=== PATIENT | male | born 1970 | race Caucasian/White ===

== ENCOUNTER 2019-07-30 16:12 | Emergency (ER) | payer BC ==
[2019-07-30] MEDS ORDERED: Famotidine IV* 10 MG/ML 2 ML (20 mg) IV SLOW PU ONE (16:35)
[2019-07-30] MEDS ORDERED: NS 0.9% 1000 ML** 1,000 ML IV ONE (16:35)
--- NOTE | 2019-07-30 16:37 | ED ---
Allergic Reaction/Systemic - HPI Summary HPI Summary: This patient is a 49 year old M BIBA to ED vis EMS with a chief complaint of allergic reaction since 1529 today. Patient was stung by wasps and developed hives. He was doing yardwork and moved a log that had a yellow jackets nest underneath. Patient has a hx of reaction to bees and wasps. He usually has itchy throat and hives. Within 15 minutes of being stung, patient treated himself with Epi-Pen that in November and 50mg Benadryl before he had SOB. EMS gave 10mg of Decadron. The patient rates the pain 0/10 in severity. Symptoms aggravated by nothing. Symptoms alleviated by Epi-Pen, Benadryl, Decadron (by EMS). Patient reports hives. Patient denies SOB. - History of Current Complaint Chief Complaint: EDAllergicReaction Time Seen by Provider: 07/30/19 16:25 Hx Obtained From: Patient Onset/Duration: Sudden Onset, Started hours ago - At 1529 today Severity Initially: Mild Severity Currently: Mild Pain Intensity: 0 Pain Scale Used: 0-10 Numeric Character: Hives Aggravating Factor(s): Nothing Alleviating Factor(s): Other - Epi-Pen, Benadryl, Decadron (by EMS) Associated Signs And Symptoms: Positive: Negative - SOB, Rash - Hives - Allergies/Home Medications Allergies/Adverse Reactions: Allergies Allergy/AdvReac Type Severity Reaction Status Date / Time bee venom protein (honey bee) Allergy Anaphylatic Verified 07/30/19 16:22 Shock Home Medications: Home Medications Atorvastatin* [Lipitor*] 10 mg PO 2100 07/30/19 [History Confirmed 07/30/19] PMH/Surg Hx/FS Hx/Imm Hx Endocrine/Hematology History: Denies: Hx Diabetes Cardiovascular History: Denies: Hx Hypertension Sensory History: Denies: Hx Legally Blind, Hx Deafness Opthamlomology History: Denies: Hx Legally Blind EENT History: Denies: Hx Deafness - Surgical History Surgery Procedure, Year, and Place: Denies Infectious Disease History: No Infectious Disease History: Denies: Traveled Outside the [place] in Last 30 Days - Family History Known Family History: Positive: Non-Contributory - Social History Alcohol Use: None Hx Substance Use: No Substance Use Type: Reports: None Hx Tobacco Use: No Smoking Status (MU): Never Smoked Tobacco Review of Systems Negative: Shortness Of Breath Skin: Other - Hives All Other Systems Reviewed And Are Negative: Yes Physical Exam - Summary Physical Exam Summary: GENERAL: Patient is a well-developed and nourished M who is lying comfortable in the stretcher. Patient is not in any acute respiratory distress. HEAD AND FACE: Normocephalic EYES: PERRLA, EOMI x 2. EARS: Hearing grossly intact. MOUTH: Oropharynx within normal limits. Uvula is midline and unswollen NECK: Supple, trachea is midline, no adenopathy, no JVD, no carotid bruit. CHEST: Symmetric, no tenderness at palpation LUNGS: Clear to auscultation bilaterally. No wheezing or crackles. CVS: Regular rate and rhythm, S1 and S2 present, no murmurs or gallops appreciated. ABDOMEN: Soft, non-tender. Bowel sounds are normal. No abnormal abdominal pulsations. EXTREMITIES: Full ROM in all major joints, no edema, no cyanosis or clubbing. NEURO: Alert and oriented x 3. No acute neurological deficits. Speech is normal and follows commands. SKIN: Wasp stings on upper back, chest, lower abdomen, waist Triage Information Reviewed: Yes Vital Signs On Initial Exam: Initial Vitals Temp Pulse Resp BP Pulse Ox 99 F 101 20 124/76 93 07/30/19 16:15 07/30/19 16:15 07/30/19 16:15 07/30/19 16:15 07/30/19 16:15 Vital Signs Reviewed: Yes Diagnostics - Vital Signs Vital Signs Temp Pulse Resp BP Pulse Ox 07/30/19 16:15 99 F 101 20 124/76 93 - Laboratory Lab Statement: Any lab studies that have been ordered have been reviewed, and results considered in the medical decision making process. Re-Evaluation - Re-Evaluation First Eval Re-Evaluation Time: 18:24 Change: Improved Comment: Patient reports feeling better. Patient will be watched for another half hour and then discharged with dx of allergic reaction to wasp. Patient understands and agrees with this plan. Allergic Reaction Course/Dx - Course Course Of Treatment: This patient is a 49 year old M BIBA to ED vis EMS with a chief complaint of allergic reaction to wasp stings at 1530 today. In the ED course, patient received Famotidine and fluids. After treatment and watching in the ED, patient reports feeling better. Patient will be discharged home with dx of allergic reaction to wasp sting. Patient understands and agrees with this plan. - Diagnoses Provider Diagnoses: Allergic reaction Discharge ED - Sign-Out/Discharge Documenting (check all that apply): Patient Departure - Discharge Patient Received Moderate/Deep Sedation with Procedure: No - Discharge Plan Condition: Stable Disposition: HOME Prescriptions: diphenhydrAMINE HCl [Benadryl] 50 mg PO TID #30 capsule EPINEPHrine [Epipen 2-Gideon] 0.3 mg IM ONCE #1 inj Famotidine TAB* [Pepcid 20 MG TAB*] 40 mg PO DAILY #20 tab predniSONE [Prednisone 20 MG TAB] 20 mg PO DAILY #4 tablet Patient Education Materials: Insect Bite or Sting (ED), Anaphylaxis (ED), Allergies (ED) Referrals: Alvaro Marcus MD [Primary Care Provider] - 3 Days Additional Instructions: Follow up with your primary care physician in 1-3 days. RETURN TO THE EMERGENCY DEPARTMENT FOR CHANGING OR WORSENING SYMPTOMS. - Billing Disposition and Condition Condition: STABLE Disposition: Home - Attestation Statements Document Initiated by Raheelibe: Yes Documenting Scribe: Alvaro Amos Provider For Whom Lorrie is Documenting (Include Credential): Mel Melgar MD Scribe Attestation: IAlvaro scribed for Mel Melgar MD on 07/30/19 at 1849. Scribe Documentation Reviewed: Yes Provider Attestation: The documentation as recorded by the Alvaro grayson accurately reflects the service I personally performed and the decisions made by me, Mel Melgar MD Status of Scribe Document: Viewed
[2019-07-30 19:17] VITALS: BP 130/79
== END 2019-07-30 19:16 | disposition home or self-care (01) ==
LOC: ED 16:12
DX: T78.40XA Allergy, unspecified, initial encounter (principal); X58.XXXA Exposure to other specified factors, initial encounter; Y92.9 Unspecified place or not applicable; Z79.899 Other long term (current) drug therapy
CPT/HCPCS: 96361; 96374; 99283

== ENCOUNTER 2020-01-22 14:32 | Emergency (ER) | payer OTHER ==
--- NOTE | 2020-01-22 16:02 | ED ---
HPI Cardiac - HPI Summary HPI Summary: This patient is a 49 year old male presenting to [facility] with a chief complaint of hypertension and potentially associated symptoms. He reports headache and dizziness. Blood pressure in the ED is 141/90. He saw his PCP recently where he was originally diagnosed and was advised to increase in exercise, patient already has relatively healthy diet and has recent weight loss of 20 lbs. Patient was recently diagnosed by his PCP and has not put him on medications. Patient denies chest pain, SOB. Atorvastatin* [Lipitor*] 10 mg PO 2100 07/30/19 [History Confirmed 07/30/19] EPINEPHrine [Epipen 2-Gideon] 0.3 mg IM ONCE #1 inj 07/30/19 [Rx] Famotidine TAB* [Pepcid 20 MG TAB*] 40 mg PO DAILY #20 tab 07/30/19 [Rx] diphenhydrAMINE HCl [Benadryl] 50 mg PO TID #30 capsule 07/30/19 [Rx] predniSONE [Prednisone 20 MG TAB] 20 mg PO DAILY #4 tablet 07/30/19 [Rx] - History of Current Complaint Chief Complaint: EDHeadache Stated Complaint: DIZZINESS/HEADACHE PER PT Hx Obtained From: Patient Onset/Duration: Started Days Ago Pain Intensity: 4 Pain Scale Used: 0-10 Numeric - Allergy/Home Medications Allergies/Adverse Reactions: Allergies Allergy/AdvReac Type Severity Reaction Status Date / Time bee venom protein (honey bee) Allergy Anaphylatic Verified 07/30/19 16:22 Shock Home Medications: Home Medications Atorvastatin* [Lipitor*] 10 mg PO 2100 07/30/19 [History Confirmed 07/30/19] EPINEPHrine [Epipen 2-Gideon] 0.3 mg IM ONCE #1 inj 07/30/19 [Rx] Famotidine TAB* [Pepcid 20 MG TAB*] 40 mg PO DAILY #20 tab 07/30/19 [Rx] diphenhydrAMINE HCl [Benadryl] 50 mg PO TID #30 capsule 07/30/19 [Rx] predniSONE [Prednisone 20 MG TAB] 20 mg PO DAILY #4 tablet 07/30/19 [Rx] PMH/Surg Hx/FS Hx/Imm Hx Endocrine/Hematology History: Denies: Hx Diabetes Cardiovascular History: Reports: Hx Hypercholesterolemia Denies: Hx Hypertension Sensory History: Denies: Hx Legally Blind, Hx Deafness Opthamlomology History: Denies: Hx Legally Blind - Surgical History Surgery Procedure, Year, and Place: Denies Infectious Disease History: No Infectious Disease History: Denies: Traveled Outside the [place] in Last 30 Days - Family History Known Family History: Negative: Seizure Disorder - Social History Alcohol Use: None Hx Substance Use: No Substance Use Type: Reports: None Hx Tobacco Use: No Smoking Status (MU): Never Smoked Tobacco Type: Smokeless Tobacco Review of Systems Positive: Other - Hypertension. Negative: Chest Pain Negative: Shortness Of Breath Neurological/Mental Status: Other - Dizziness Positive: Headache All Other Systems Reviewed And Are Negative: Yes Physical Exam - Summary Physical Exam Summary: VITAL SIGNS: Reviewed. GENERAL: Patient is a well-developed and nourished MALE who is lying comfortable in the stretcher. Patient is not in any acute respiratory distress. HEAD AND FACE: No signs of trauma. No ecchymosis, hematomas or skull depressions. No sinus tenderness. EYES: PERRLA, EOMI x 2, No injected conjunctiva, no nystagmus. EARS: Hearing grossly intact. Ear canals and tympanic membranes are within normal limits. MOUTH: Oropharynx within normal limits. NECK: Supple, trachea is midline, no adenopathy, no JVD, no carotid bruit, no c- spine tenderness, neck with full ROM. CHEST: Symmetric, no tenderness at palpation. LUNGS: Clear to auscultation bilaterally. No wheezing or crackles. CVS: Regular rate and rhythm, S1 and S2 present, no murmurs or gallops appreciated. ABDOMEN: Soft, non-tender. No signs of distention. No rebound, no guarding, and no masses palpated. Bowel sounds are normal. EXTREMITIES: FROM in all major joints, no edema, no cyanosis or clubbing. NEURO: Alert and oriented x 3. No acute neurological deficits. Speech is normal and follows commands. SKIN: Dry and warm. Triage Information Reviewed: Yes Vital Signs On Initial Exam: Initial Vitals Temp Pulse Resp BP Pulse Ox 98.5 F 94 16 158/94 97 01/22/20 14:33 01/22/20 14:33 01/22/20 14:33 01/22/20 14:33 01/22/20 14:33 Vital Signs Reviewed: Yes Procedures - Sedation Patient Received Moderate/Deep Sedation with Procedure: No Diagnostics - Vital Signs Vital Signs Temp Pulse Resp BP Pulse Ox 03/01/20 14:33 98.5 F 94 16 158/94 97 - Laboratory Result Diagrams: 01/22/20 16:16 01/22/20 16:16 Lab Statement: Any lab studies that have been ordered have been reviewed, and results considered in the medical decision making process. - EKG 1608 Cardiac Rate: NL - 71 BPM EKG Rhythm: Sinus Rhythm Summary of EKG Findings: No ST elevations. ED Physician has reviewed and interpreted this EKG. Disposition - Course Assessment/Plan: This patient is a 49 year old male presenting to [facility] with a chief complaint of hypertension and potentially associated symptoms. He reports headache and dizziness. Blood pressure in the ED is 141/90. He saw his PCP recently where he was originally diagnosed and was advised to increase in exercise, patient already has relatively healthy diet and has recent weight loss of 20 lbs. Patient was recently diagnosed by his PCP and has not put him on medications. Patient denies chest pain, SOB. In the ED course the patient was placed in a case monitor. Blood test w/o a significant abnormality. EKG is a normal sinus rhythm without ST elevation. In the ED the blood pressure is 112/81. I discussed all the findings and test results with the patient. Patient was instructed to return to the emergency room immediately if any of the symptoms return worsens. Plan of care was discussed with the patient and understands and agrees. All questions were answered at patient satisfaction. There were no further complaints or concerns. Lung exam before discharge: CTA B/L. Good air exchange. No wheezing or crackles heard. CVS: S1 and S2 present. No murmurs appreciated. Patient is alert and oriented x 3. Patient is hemodynamically stable. Patient will be discharged home with follow up PCP in the next 2-3 days - Diagnoses Provider Diagnoses: Elevated blood pressure reading Discharge ED - Sign-Out/Discharge Documenting (check all that apply): Patient Departure - Discharge - Discharge Plan Condition: Stable Disposition: HOME Patient Education Materials: Hypertension (ED) Referrals: Lokesh Willis MD [Primary Care Provider] - Additional Instructions: Return to ED with new or worsening symptoms. Follow up with your primary care provider in 3 days. - Billing Disposition and Condition Condition: STABLE Disposition: Home - Attestation Statements Document Initiated by Scribe: Yes Documenting Scribe: Christopher Beshara Provider For Whom Scribe is Documenting (Include Credential): Rk Cano MD Scribe Attestation: I, Christopher Heath, scribed for Rk Cano MD on 01/22/20 at 2106. Scribe Documentation Reviewed: Yes Provider Attestation: The documentation as recorded by the tayibChristopher rothman accurately reflects the service I personally performed and the decisions made by me, Rk Cano MD Status of Scribe Document: Viewed
[2020-01-22 16:24] LABS: ABS Lymphocytes 1.6 10^3/ul (1.0-4.8); ABS Monocytes 0.5 10^3/ul (0-0.8); ABS Neutrophils 4.4 10^3/ul (1.5-7.7); Eosinophil % 0.3 %; Hematocrit 43 % (42-52); Hemoglobin 14.6 g/dL (14.0-18.0); Lymphocyte % 24.5 %; Mean Corpuscular HGB Conc 34 g/dL (31-36); Mean Corpuscular Hemoglobin 29 pg (27-31); Mean Corpuscular Volume 86 fL (80-94); Mean Platelet Volume 8.1 fL (7.4-10.4); Platelet Count 262 10^3/uL (150-450); Red Blood Count 4.98 10^6 /uL (4.18-5.48); Red Cell Distribution Width 13 % (10-15); White Blood Count 6.5 10^3/uL (3.5-10.8)
[2020-01-22 16:43] LABS: Albumin 4.9 g/dL (3.2-5.2); Albumin/Globulin Ratio 1.8 (1-3); BUN/Creatinine Ratio 13.6 (8-20); Calcium 9.6 mg/dL (8.6-10.3); EGFR African American 93.3 (>60); EGFR Non-African American 77.1 (>60); Globulin 2.7 g/dL (2-4); Potassium 4.4 mmol/L (3.5-5.0); Total Bilirubin 0.3 mg/dL (0.2-1.0); Total Protein 7.6 g/dL (6.4-8.9)
[2020-01-22 17:05] VITALS: BP 112/83
[2020-01-22 17:06] LABS: Urine Appearance Clear; Urine Bilirubin Negative (Negative); Urine Blood Negative (Negative); Urine Color Straw; Urine Glucose Negative (Negative); Urine Ketones Negative (Negative); Urine Nitrite Negative (Negative); Urine Protein Negative (Negative); Urine Specific Gravity 1.003 (1.010-1.030); Urine Urobilinogen Negative (Negative)
== END 2020-01-22 17:05 | disposition home or self-care (01) ==
LOC: ED 14:32
DX: R03.0 Elevated blood-pressure reading, without diagnosis of hypertension (principal); R51 Headache; R42 Dizziness and giddiness; I49.9 Cardiac arrhythmia, unspecified; E78.00 Pure hypercholesterolemia, unspecified; Z79.899 Other long term (current) drug therapy; Z91.030 Bee allergy status
CPT/HCPCS: 36415; 80053; 81003; 83880; 85025; 93005; 99282